=== PATIENT | female | born 1945 | race Caucasian/White ===

== ENCOUNTER 2017-12-18 14:33 | Emergency (ER) | payer MEDICARE, MEDICAID ==
[2017-12-18 14:58] VITALS: BMI 30.2
[2017-12-18] MEDS ORDERED: TDAP Vaccine 0.5 mL Syr IM ONE (15:31)
--- NOTE | 2017-12-18 15:35 | ED PDOC ---
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 Patient stated she tripped and fell down while walking on sidewalk. She stated she has a lip laceration, and front upper toothache. Patient denies PAULSON, n/v, diplopia, jaw pain, dizziness, or abnormal gait. Denies hand pain, wrist pain, cp, sob, neck pain, shoulder pain, or abnormal gait. Time/Duration: Prior to Arrival Context: Home Past Medical History - Provider Review Nursing Documentation Reviewed: Yes - Infectious Disease Hx of Infectious Diseases: None - Tetanus Immunization Tetanus Immunization: Unknown - Cardiac Hx Hypertension: Yes - Musculoskeletal/Rheumatological Hx Arthritis: Yes - Gastrointestinal Hx Gastroesophageal Reflux: Yes - Psychiatric Hx Depression: No Hx Emotional Abuse: No Hx Physical Abuse: No Hx Substance Use: No - Surgical History Hx Cholecystectomy: Yes - Anesthesia Hx Anesthesia Reactions: No - Suicidal Assessment Feels Threatened In Home Enviroment: No Family/Social History - Physician Review Nursing Documentation Reviewed: Yes Family/Social History: Other (noncontributory) Smoking Status: Unknown If Ever Smoked Hx Alcohol Use: No Hx Substance Use: No Hx Substance Use Treatment: No Allergies/Home Meds Allergies/Adverse Reactions: Allergies codeine Adverse Reaction (Verified 01/18/16 16:04) NAUSEA Home Medications: Home Meds Medication Instructions Recorded Confirmed Esomeprazole Magnesium [Nexium] 40 mg PO DAILY 01/06/14 01/18/16 Fish Oil [[place]-3] 1 cap PO DAILY 01/06/14 01/18/16 Metoprolol Succinate [Metoprolol 12.5 mg PO BID 01/06/14 01/18/16 Succinate] Review of Systems - Review of Systems Constitutional: Normal. absent: Fatigue, Weight Change, Fevers Eyes: Normal ENT: Normal, Other (mouth injury, tooth injury) Respiratory: Normal. absent: SOB, Cough Cardiovascular: Normal. absent: Chest Pain, Palpitations Gastrointestinal: Normal. absent: Abdominal Pain, Nausea, Vomiting Genitourinary Female: Normal. absent: Dysuria, Frequency, Hematuria Musculoskeletal: absent: Back Pain, Neck Pain Skin: Other ((+) abrasion) Neurological: Normal. absent: Headache, Dizziness, Focal Weakness, Gait Changes , Facial Droop, Disequilibrium, Seizure Endocrine: Normal Hemo/Lymphatic: Normal Psychiatric: Normal Physical Exam Vital Signs Temp Pulse Resp BP Pulse Ox 12/18/17 18:56 66 16 135/87 99 12/18/17 16:42 98.7 F 57 L 18 165/80 H 100 12/18/17 16:15 71 18 126/73 98 12/18/17 14:58 98.4 F 76 16 97 Temperature: Afebrile Blood Pressure: Normal Pulse: Regular Respiratory Rate: Normal Appearance: Positive for: Well-Appearing, Non-Toxic, Comfortable Pain Distress: None Mental Status: Positive for: Alert and Oriented X 3 - Systems Exam Head: Present: Atraumatic, Normocephalic, Other (no raccoon sign. No sidhu sign) Pupils: Present: PERRL, Other (nohyphema) Extroacular Muscles: Present: EOMI Conjunctiva: Present: Normal Ears: Present: Normal, Other (no hemotympanum) Mouth: Present: Moist Mucous Membranes, Normal Lips ((+) 4 mm superficial, inner lip irregular laceration. no actively bleeding), Normal Tounge, Other ((+ ) mild tenderness on tooth #9. Tooth appears in good position, with a small chip Fx. on the medial tip of this tooth. Tooth moves very slightly if pushed.) . No: Drooling, Trismus Pharnyx: Present: Normal. No: ERYTHEMA, EXUDATE, TONSILS ENLARGED Nose (External): Present: Atraumatic Nose (Internal): Present: Normal Inspection. No: Septal Hematoma, Epistaxis Neck: Present: Normal Range of Motion Respiratory/Chest: Present: Clear to Auscultation, Good Air Exchange. No: Respiratory Distress, Accessory Muscle Use Cardiovascular: Present: Regular Rate and Rhythm, Normal S1, S2. No: Murmurs Abdomen: Present: Normal Bowel Sounds. No: Tenderness, Distention, Peritoneal Signs Back: Present: Normal Inspection Upper Extremity: Present: Normal Inspection. No: Cyanosis, Edema Lower Extremity: Present: Normal Inspection. No: Edema Neurological: Present: GCS=15, CN II-XII Intact, Speech Normal Skin: Present: Warm, Dry, Normal Color. No: Rashes Psychiatric: Present: Alert, Oriented x 3, Normal Insight, Normal Concentration Medical Decision Making ED Course and Treatment: 12/18/17 14:25 Patient came to ED for mount injury from a mechanical fall. patient denied loc , syncope, dizziness, weakness, or parethesias. She also denies sob, fever, cp , abdominal pain or urinary symptoms. CT Brain and maxillo facial were ordered. Suture repair will be performed. 12/18/17 17:50 Re-evaluation. Patient feels better. Discussed results and plan with patient who expresses understanding. All questions answered and there is agreement with the plan to discharge home with instructions. Patient stable for discharge. Return if symptoms persist or worsen Patient was recommended to see her dentist in 1-2 days. She was also recommended to see ENT Dr. Gunter for revaluation of lip laceration. She understood to return to emergency if wound becomes infected or worsening of pain. Re-evaluation Time: 17:54 Reassessment Condition: Re-examined, Improved - RAD Interpretation Narrative RAD Interpretations (Text): 12/18/17 17:44 PROCEDURE: CT scan maxillofacial skeleton dated 12/18/2017 HISTORY: Status post fall with injury COMPARISON: Correlation made with concurrent CT scan brain TECHNIQUE: Contiguous helical/transaxial CT images of the maxillofacial bones were obtained. Coronal and sagittal reformats were generated. Radiation dose: Are Total exam DLP = 793.07 mGy-cm. This CT exam was performed using one or more of the following dose reduction techniques: Automated exposure control, adjustment of the mA and/or kV according to patient size, and/or use of iterative reconstruction technique. FINDINGS: The current study reveals what appears represent mild soft tissue swelling overlying the mandible particular at the level of symphysis and to a lesser degree bilaterally. Additionally, there appears to be at absent right and left central mandibular incisors however evaluation somewhat limited due to significant streak and beam hardening artifact from dental amalgam and caps so evaluation is quite limited. Small radiopaque densities within the subcutaneous tissue lower lip midline could represent bony dental fragments however clinical correlation recommended. The mandible otherwise appears intact. The globes intact and lenses appropriately located. No retrobulbar hemorrhages or collections. Optic nerves and extraocular musculature unremarkable. The visualized paranasal sinuses are relatively well-developed and currently well-aerated. No fluid levels seen suggest acute hemorrhage or sinusitis Nasal bones intact. Nasal septum midline. IMPRESSION: The central mandibular incisors are absent which could be due to recent trauma given the overlying soft tissue swelling and tiny radiopaque densities within the subcutaneous tissues lower lip that could represent either bony fragments or possibly foreign bodies such as glass or gravel. Clinical correlation recommended. Note that evaluation is limited the due to dental amalgam and metallic CT See above discussion for additional details. 12/18/17 17:45 PROCEDURE: CT scan brain dated 12/18/2017. HISTORY: Status post fall with headache. COMPARISON: Correlation made with concurrent CT scan maxillofacial skeleton. . Comparison also made with prior CT scan of brain dated 01/07/2014 TECHNIQUE: Axial computed tomography images were obtained through the head/brain without intravenous contrast. Radiation dose: Total exam DLP = mGy-cm. This CT exam was performed using one or more of the following dose reduction techniques: Automated exposure control, adjustment of the mA and/or kV according to patient size, and/or use of iterative reconstruction technique. FINDINGS: HEMORRHAGE: No acute parenchymal, subarachnoid or extra-axial hemorrhage. . BRAIN: Moderate diffuse/confluent chronic white matter ischemic changes seen extending peripherally into the deep and subcortical white matter both cerebral hemispheres. There appear to be a few tiny lacunar type infarcts scattered about both basal nuclei. Moderate central volume loss evidenced by disproportionate enlargement of the ventricles as compared sulci. Mild vascular calcifications carotid siphons. VENTRICLES: No obstructive hydrocephalus. CALVARIUM: There are no acute calvarial fractures. . PARANASAL SINUSES: The visualized paranasal sinuses are well-developed and currently well-aerated. No fluid levels seen to suggest acute hemorrhage or sinusitis. MASTOID AIR CELLS: Unremarkable as visualized. No inflammatory changes. OTHER FINDINGS: None. IMPRESSION: No acute intracranial hemorrhage. Moderate chronic white matter ischemic changes with a few scattered chronic bilateral basal nuclei lacunar type infarcts. Moderate central volume loss. Radiology Orders: 12/18/17 15:29 HEAD W/O CONTRAST [CT] Stat 12/18/17 15:30 MAXILLOFACIAL W/O CONTRAST [CT] Stat - Medication Orders Current Medication Orders: Discontinued Medications Acetaminophen (Tylenol 325mg Tab) 650 mg PO STAT STA Stop: 12/18/17 15:31 Last Admin: 12/18/17 16:00 Dose: 650 mg MAR Pain/Vitals Document 12/18/17 16:00 HI (Rec: 12/18/17 16:00 HI [id number]) Pain Reassessment Is This A Pain ReAssessment? No Location Pain Location Body Site Face Amoxicillin (Amoxil 500 Mg Cap) 500 mg PO STAT STA PRN Reason: Protocol Stop: 12/18/17 17:51 Last Admin: 12/18/17 18:46 Dose: 500 mg Famotidine (Pepcid) 40 mg PO STAT STA Stop: 12/18/17 15:32 Last Admin: 12/18/17 16:00 Dose: 40 mg Ibuprofen (Motrin Tab) 400 mg PO STAT STA Stop: 12/18/17 17:49 Last Admin: 12/18/17 18:45 Dose: 400 mg MAR Pain/Vitals Document 12/18/17 18:45 HI (Rec: 12/18/17 18:46 HI [id number]) Pain Reassessment Is This A Pain ReAssessment? Yes Tetanus/Reduced Diphtheria/Acell Pertussis (Boostrix Vaccine Inj) 0.5 ml IM .ONCE ONE Stop: 12/18/17 15:32 Last Admin: 12/18/17 17:00 Dose: 0.5 ml Immunization Registry Document 12/18/17 17:00 HI (Rec: 12/18/17 17:00 HI [id number]) Immunization Registry Consent Date 12/18/17 - Procedure PROCEDURE NOTE (Text): 12/18/17 17:57 PROCEDURE: LACERATION REPAIR Performed by the emergency provider Location: inferior lip Length: 2.7 cm, inner lip and external side of lip Description: clean wound edges, irregular shape laceration, no foreign bodies Distal CMS: Normal. No deficits. Neurovascularly intact. Anesthesia: Lidocaine 1% without Epi Preparation: The wound was cleaned with NS and [place]. The area was prepped and draped in the usual sterile fashion. Exploration: The wound was explored and no foreign bodies were found. Procedure: The wound was closed with Vicryl, 5-0, interrupted. There was good approximation. In total, 3 sutures were used. Post-Procedure: Good closure and hemostasis. The patient tolerated the procedure well and there were no complications. CSM remains intact. Post procedure dressing applied. Disposition/Present on Arrival - Present on Arrival Any Indicators Present on Arrival: No History of DVT/PE: No History of Uncontrolled Diabetes: No Urinary Catheter: No History of Decub. Ulcer: No History Surgical Site Infection Following: None - Disposition Have Diagnosis and Disposition been Completed?: Yes Diagnosis: Closed fracture of incisor teeth, Laceration with foreign body of lip, initial encounter Disposition: HOME/ ROUTINE Disposition Time: 17:47 Patient Plan: Discharge Condition: IMPROVED Discharge Instructions (ExitCare): Acute Dental Trauma (ED), Facial Laceration (ED) Additional Instructions: Call private dentist in 1-2 days for revaluation of your tooth injury and pain. Also call ENT doctor Jani, or other ENT doctor you have used in the past. Take medication as instructed. Return to emergency if symptoms worsen. Prescriptions: Amoxicillin [Amoxil 500 mg Cap] 500 mg PO TID #21 cap Famotidine [Pepcid] 40 mg PO DAILY #10 tablet Ibuprofen [Motrin] 400 mg PO Q8H PRN #12 tab PRN Reason: Pain, Severe (8-10) Referrals: Marjorie La MD [Primary Care Provider] - Follow up with primary Wai Gunter DO [Staff Provider] - Follow up with primary Forms: Deed (British)
--- NOTE | 2017-12-18 16:38 | CT ---
PROCEDURE: CT scan brain dated 12/18/2017. HISTORY: Status post fall with headache. COMPARISON: Correlation made with concurrent CT scan maxillofacial skeleton. . Comparison also made with prior CT scan of brain dated 01/07/2014 TECHNIQUE: Axial computed tomography images were obtained through the head/brain without intravenous contrast. Radiation dose: Total exam DLP = mGy-cm. This CT exam was performed using one or more of the following dose reduction techniques: Automated exposure control, adjustment of the mA and/or kV according to patient size, and/or use of iterative reconstruction technique. FINDINGS: HEMORRHAGE: No acute parenchymal, subarachnoid or extra-axial hemorrhage. . BRAIN: Moderate diffuse/confluent chronic white matter ischemic changes seen extending peripherally into the deep and subcortical white matter both cerebral hemispheres. There appear to be a few tiny lacunar type infarcts scattered about both basal nuclei. Moderate central volume loss evidenced by disproportionate enlargement of the ventricles as compared sulci. Mild vascular calcifications carotid siphons. VENTRICLES: No obstructive hydrocephalus. CALVARIUM: There are no acute calvarial fractures. . PARANASAL SINUSES: The visualized paranasal sinuses are well-developed and currently well-aerated. No fluid levels seen to suggest acute hemorrhage or sinusitis. MASTOID AIR CELLS: Unremarkable as visualized. No inflammatory changes. OTHER FINDINGS: None. IMPRESSION: No acute intracranial hemorrhage. Moderate chronic white matter ischemic changes with a few scattered chronic bilateral basal nuclei lacunar type infarcts. Moderate central volume loss.
[2017-12-18 16:43] VITALS: TEMP 98.7
--- NOTE | 2017-12-18 17:08 | CT ---
PROCEDURE: CT scan maxillofacial skeleton dated 12/18/2017 HISTORY: Status post fall with injury COMPARISON: Correlation made with concurrent CT scan brain TECHNIQUE: Contiguous helical/transaxial CT images of the maxillofacial bones were obtained. Coronal and sagittal reformats were generated. Radiation dose: Are Total exam DLP = 793.07 mGy-cm. This CT exam was performed using one or more of the following dose reduction techniques: Automated exposure control, adjustment of the mA and/or kV according to patient size, and/or use of iterative reconstruction technique. FINDINGS: The current study reveals what appears represent mild soft tissue swelling overlying the mandible particular at the level of symphysis and to a lesser degree bilaterally. Additionally, there appears to be at absent right and left central mandibular incisors however evaluation somewhat limited due to significant streak and beam hardening artifact from dental amalgam and caps so evaluation is quite limited. Small radiopaque densities within the subcutaneous tissue lower lip midline could represent bony dental fragments however clinical correlation recommended. The mandible otherwise appears intact. The globes intact and lenses appropriately located. No retrobulbar hemorrhages or collections. Optic nerves and extraocular musculature unremarkable. The visualized paranasal sinuses are relatively well-developed and currently well-aerated. No fluid levels seen suggest acute hemorrhage or sinusitis Nasal bones intact. Nasal septum midline. IMPRESSION: The central mandibular incisors are absent which could be due to recent trauma given the overlying soft tissue swelling and tiny radiopaque densities within the subcutaneous tissues lower lip that could represent either bony fragments or possibly foreign bodies such as glass or gravel. Clinical correlation recommended. Note that evaluation is limited the due to dental amalgam and metallic CT See above discussion for additional details.
[2017-12-18 18:58] VITALS: BP 135/87; PULSE 66; RESP 16; O2SAT 99
== END 2017-12-18 18:56 | disposition home or self-care (01) ==
LOC: ED 14:33
DX: S01.521A Laceration with foreign body of lip, initial encounter (principal); S02.5XXA Fracture of tooth (traumatic), initial encounter for closed fracture; W01.0XXA Fall on same level from slipping, tripping and stumbling without subsequent striking against object, initial encounter; Y93.01 Activity, walking, marching and hiking; Y92.480 Sidewalk as the place of occurrence of the external cause; Z23 Encounter for immunization; I10 Essential (primary) hypertension; M19.90 Unspecified osteoarthritis, unspecified site

== ENCOUNTER 2018-03-31 08:07 | Emergency (ER) | payer MEDICARE, MEDICAID ==
[2018-03-31 08:09] VITALS: BMI 28.3
[2018-03-31 08:24] VITALS: RESP 18; TEMP 98.4
[2018-03-31] MEDS ORDERED: Sodium Chloride 0.9% 1,000 ML IV STA (08:28)
[2018-03-31] MEDS ORDERED: Alum-Mag Hydrox-Simethicone Susp (30 mL) PO STA (08:29)
[2018-03-31] MEDS ORDERED: Famotidine 20mg/50ml Premix IVPB STA (08:36)
[2018-03-31 08:53] LABS: BASO # 0.02 K/mm3 (0.0-2.0); BASO % 0.3 % (0.0-3.0); EOS # 0.1 (0.0-0.7); EOS % 0.8 % (1.5-5.0); GRAN # 3.17 (1.4-6.5); GRAN % 49.9 % (50.0-68.0); HEMOGLOBIN 13.9 g/dL (12.0-16.0); LYMPH # 2.6 (1.2-3.4); LYMPH % 41.4 % (22.0-35.0); MEAN CELL VOLUME 82.4 fl (80.0-105.0); MEAN CORPUSCULAR HEMOGLOBIN 27.5 pg (25.0-35.0); MEAN CORPUSCULAR HGB CONC 33.4 g/dl (31.0-37.0); MEAN PLATELET VOLUME 9.6 fl (7.0-11.0); MONO # 0.5 (0.1-0.6); MONO % 7.6 % (1.0-6.0); RBC 5.05 10^6/uL (3.5-6.1); WHITE BLOOD COUNT 6.4 10^3/ul (4.5-11.0)
[2018-03-31 09:01] LABS: ALB/GLOB RATIO 1.4 (1.1-1.8); ALBUMIN 4.2 g/dL (3.0-4.8); ALT/SGPT 26 U/L (7-56); AST/SGOT 32 U/L (14-36); BLOOD UREA NITROGEN 9 mg/dL (7-21); CALCIUM 9.5 mg/dL (8.4-10.5); GFR AFRICAN-AMERICAN > 60; GFR NON-AFRICAN AMERICAN > 60; LIPASE 79 U/L (23-300)
[2018-03-31] MEDS ORDERED: Iohexol 350 MG/100 ML VIAL ONE (09:05)
[2018-03-31 09:15] LABS: PH,URINE 6.5 (4.7-8.0); URINE BILIRUBIN NEGATIVE (NEGATIVE); URINE BLOOD NEGATIVE (NEGATIVE); URINE GLUCOSE (UA) NEGATIVE (NEGATIVE); URINE LEUKOCYTE ESTERASE NEGATIVE Leu/uL (NEGATIVE); URINE PROTEIN NEGATIVE mg/dL (<30 mg/dL); URINE UROBILINOGEN 0.2 E.U./dL (<1 E.U./dL)
[2018-03-31 09:29] LABS: URINE APPEARANCE CLEAR (CLEAR); URINE COLOR YELLOW (YELLOW)
--- NOTE | 2018-03-31 10:09 | ED PDOC ---
Arrival/HPI <Joselyn Mcgregor - Last Filed: 03/31/18 11:00> - General Historian: Patient - History of Present Illness Time/Duration: < week Symptom Onset: Sudden Context: Home <Joe Arroyo DO - Last Filed: 03/31/18 18:15> - General Chief Complaint: Abdominal Pain Time Seen by Provider: 03/31/18 08:24 - History of Present Illness Narrative History of Present Illness (Text): 03/31/18 10:08 Patient is a 73 year old female with a history of HTN, arhtritis, and GERD, who presents to the ED with LUQ abdominal pain. Patient says this started 2 days ago. She says the pain radiates up to her chest substernally and has pain in her throat as well. She denies any bad tastes in her mouth. She says this is associated with SOB on exertion, palpitations, and right sided headache. She denies fever, chills, cough, vomiting, diarrhea, constipation, dysuria, and lower extremity pain/swelling. (Joselyn Mcgregor) Past Medical History - Infectious Disease Hx of Infectious Diseases: None - Tetanus Immunization Tetanus Immunization: Unknown - Cardiac Hx Hypertension: Yes - Musculoskeletal/Rheumatological Hx Arthritis: Yes - Gastrointestinal Hx Gastroesophageal Reflux: Yes - Psychiatric Hx Depression: No Hx Emotional Abuse: No Hx Physical Abuse: No Hx Substance Use: No - Surgical History Hx Cholecystectomy: Yes - Anesthesia Hx Anesthesia Reactions: No - Suicidal Assessment Feels Threatened In Home Enviroment: No <Joselyn Mcgregor - Last Filed: 03/31/18 11:00> - Provider Review Nursing Documentation Reviewed: Yes <Joe Arroyo DO - Last Filed: 03/31/18 18:15> Family/Social History Family/Social History: No Known Family HX Smoking Status: Unknown If Ever Smoked Hx Alcohol Use: No Hx Substance Use: No Hx Substance Use Treatment: No <Joselyn Mcgregor - Last Filed: 03/31/18 11:00> - Physician Review Nursing Documentation Reviewed: Yes <Joe Arroyo DO - Last Filed: 03/31/18 18:15> Allergies/Home Meds <Joselyn Mcgregor - Last Filed: 03/31/18 11:00> <Joe Arroyo DO - Last Filed: 03/31/18 18:15> Allergies/Adverse Reactions: Allergies codeine Adverse Reaction (Verified 03/31/18 08:09) NAUSEA Home Medications: Home Meds Medication Instructions Recorded Confirmed Esomeprazole Magnesium [Nexium] 40 mg PO DAILY 01/06/14 01/18/16 Fish Oil [[place]-3] 1 cap PO DAILY 01/06/14 01/18/16 Metoprolol Succinate [Metoprolol 12.5 mg PO BID 01/06/14 01/18/16 Succinate] Review of Systems - Review of Systems Constitutional: Normal Eyes: Eye Pain (right eye, assiociated with headache/migraine) ENT: Sore Throat Respiratory: SOB. absent: Cough, Wheezing Cardiovascular: Chest Pain, Palpitations. absent: Edema, Calf Pain Gastrointestinal: Abdominal Pain Genitourinary Female: Normal. absent: Dysuria, Frequency, Hematuria Musculoskeletal: Normal Skin: Normal. absent: Rash Neurological: Headache Endocrine: Normal Hemo/Lymphatic: Normal Psychiatric: Normal <Joselyn Mcgregor - Last Filed: 03/31/18 11:00> Physical Exam - Systems Exam Head: Present: Atraumatic, Normocephalic Pupils: Present: PERRL Extroacular Muscles: Present: EOMI Conjunctiva: Present: Normal Mouth: Present: Moist Mucous Membranes Pharnyx: Present: Normal. No: ERYTHEMA, EXUDATE, TONSILS ENLARGED Nose (Internal): Present: Normal Inspection Respiratory/Chest: Present: Clear to Auscultation, Good Air Exchange. No: Respiratory Distress, Accessory Muscle Use Cardiovascular: Present: Regular Rate and Rhythm, Normal S1, S2. No: Murmurs Abdomen: Present: Normal Bowel Sounds. No: Tenderness, Distention, Peritoneal Signs Upper Extremity: Present: Normal Inspection, Norm 2-Pt Discrimination. No: Cyanosis, Edema Lower Extremity: No: Edema Neurological: Present: GCS=15, Speech Normal Skin: Present: Warm, Dry, Normal Color. No: Rashes Psychiatric: Present: Alert, Oriented x 3, Normal Insight, Normal Concentration <Joselyn Mcgregor - Last Filed: 03/31/18 11:00> Vital Signs Reviewed: Yes Temperature: Afebrile Blood Pressure: Normal Pulse: Regular Respiratory Rate: Normal Appearance: Positive for: Well-Appearing, Non-Toxic, Comfortable Pain Distress: None Mental Status: Positive for: Alert and Oriented X 3 <Joe Arroyo DO - Last Filed: 03/31/18 18:15> Vital Signs Temp Pulse Resp BP Pulse Ox 03/31/18 10:52 60 18 130/74 100 03/31/18 08:20 98.4 F 61 18 145/65 100 Medical Decision Making <Joselyn Mcgregor - Last Filed: 03/31/18 11:00> - Lab Interpretations I have reviewed the lab results: Yes - EKG Interpretation Interpreted by ED Physician: Yes Type: 12 lead EKG <Joe Arroyo DO - Last Filed: 03/31/18 18:15> ED Course and Treatment: 03/31/18 Plan: -- Maalox, Pepcid, Zofran, Sodium Chloride -- Labs -- Reassess and disposition Progress Notes: In agreement with resident note, which includes further HPI details. Patient was seen and evaluated with resident, came up with plan and treatment together. (Joe Arroyo DO) - Lab Interpretations Lab Results: 03/31/18 08:45 03/31/18 08:45 Lab Results 03/31/18 09:20: Lactate Dehydrogenase 556, Total Creatine Kinase 92, Troponin I < 0.01 03/31/18 08:45: Sodium 146, Potassium 4.0, Chloride 107, Carbon Dioxide 27, Anion Gap 16, BUN 9, Creatinine 0.8, Est GFR ( Amer) > 60, Est GFR (Non- Af Amer) > 60, Random Glucose 95, Calcium 9.5, Magnesium 2.1, Total Bilirubin 0.6, AST 32, ALT 26, Alkaline Phosphatase 68, Total Protein 7.2, Albumin 4.2, Globulin 3.1, Albumin/Globulin Ratio 1.4, Lipase 79 03/31/18 08:45: WBC 6.4, RBC 5.05, Hgb 13.9, Hct 41.6, MCV 82.4, MCH 27.5, MCHC 33.4, RDW 15.0 H, Plt Count 202, MPV 9.6, Gran % 49.9 L, Lymph % (Auto) 41.4 H, [place] % (Auto) 7.6 H, Eos % (Auto) 0.8 L, Baso % (Auto) 0.3, Gran # 3.17, Lymph # (Auto) 2.6, [place] # (Auto) 0.5, Eos # (Auto) 0.1, Baso # (Auto) 0.02 03/31/18 08:29: Urine Color Yellow, Urine Appearance Clear, Urine pH 6.5, Ur Specific [place] 1.010, Urine Protein Negative, Urine Glucose (UA) Negative, Urine Ketones Negative, Urine Blood Negative, Urine Nitrate Negative, Urine Bilirubin Negative, Urine Urobilinogen 0.2, Ur Leukocyte Esterase Negative - RAD Interpretation Radiology Orders: 03/31/18 08:29 ABD & PELVIS IV CONTRAST ONLY [CT] Stat - Medication Orders Current Medication Orders: Discontinued Medications Al Hydrox/Mg Hydrox/Simethicone (Maalox Plus 30 Ml) 30 ml PO STAT STA Stop: 03/31/18 08:30 Last Admin: 03/31/18 09:04 Dose: 30 ml Famotidine (Pepcid 20mg/50ml Premix) 20 mg IVPB STAT STA Stop: 03/31/18 08:37 Last Admin: 03/31/18 09:00 Dose: 20 mg eMAR Start Stop Document 03/31/18 09:00 [email or web address] (Rec: 03/31/18 09:04 [email or web address] [id number]) Intravenous Solution Start Date 03/31/18 Start Time 09:04 Sodium Chloride (Sodium Chloride 0.9%) 1,000 mls @ 100 mls/hr IV .Q10H STA Stop: 03/31/18 18:27 Last Admin: 03/31/18 09:00 Dose: 100 mls/hr eMAR Start Stop Document 03/31/18 09:00 [email or web address] (Rec: 03/31/18 09:00 [email or web address] [id number]) Intravenous Solution Start Date 03/31/18 Start Time 09:00 End Date 03/31/18 Ondansetron HCl (Zofran Inj) 4 mg IVP STAT STA Stop: 03/31/18 08:29 Last Admin: 03/31/18 09:04 Dose: 4 mg IVP Administration Document 03/31/18 09:04 [email or web address] (Rec: 03/31/18 09:04 [email or web address] [id number]) Charges for Administration # of IVP Administrations 1 <Joselyn Mcgregor - Last Filed: 03/31/18 11:00> - PA / RESPITE WORKER / Resident Statement CARRILLO has reviewed & agrees with the documentation as recorded. CARRILLO has examined the patient and agrees with the treatment plan. - Scribe Statement The provider has reviewed the documentation as recorded by the Scribe <Joe Arroyo DO - Last Filed: 03/31/18 18:15> - Scribe Statement Arielle Gonzalez Provider Scribe Attestation: All medical record entries made by the Scribe were at my direction and personally dictated by me. I have reviewed the chart and agree that the record accurately reflects my personal performance of the history, physical exam, medical decision making, and the department course for this patient. I have also personally directed, reviewed, and agree with the discharge instructions and disposition. (Joe Arroyo DO) Disposition/Present on Arrival - Present on Arrival Any Indicators Present on Arrival: No History of DVT/PE: No History of Uncontrolled Diabetes: No Urinary Catheter: No History of Decub. Ulcer: No History Surgical Site Infection Following: None - Disposition Have Diagnosis and Disposition been Completed?: Yes Disposition Time: 11:01 <Joselyn Mcgregor - Last Filed: 03/31/18 11:00> - Disposition Disposition Time: 10:30 <Joe Arroyo DO - Last Filed: 03/31/18 18:15> - Disposition Diagnosis: Vomiting, Abdominal pain Disposition: HOME/ ROUTINE Condition: IMPROVED Discharge Instructions (ExitCare): Nausea and Vomiting, Adult (DC), Viral Gastroenteritis, Adult (DC) Additional Instructions: Thank you for letting us take care of you today. The emergency medical care you received today was directed at your acute symptoms. If you were prescribed any medication, please fill it and take as directed. It may take several days for your symptoms to resolve. Return to the Emergency Department if your symptoms worsen, do not improve, or if you have any other problems. Please contact your doctor or call one of the physicians/clinics you have been referred to that are listed on the Patient Visit Information form that is included in your discharge packet. Bring any paperwork you were given at discharge with you along with any medications you are taking to your follow up visit. Our treatment cannot replace ongoing medical care by a primary care provider (PCP) outside of the emergency department. Thank you for allowing the [facility] team to be part of your care today. Follow up with your primary care doctor in 2-3 days for re-evaluation and further management. Prescriptions: Ondansetron ODT [Zofran ODT] 4 mg PO Q8 PRN #15 odt PRN Reason: Nausea/Vomiting Referrals: [facility], [Non-Staff] - Follow up with primary Forms: [email or web address] ([place])
--- NOTE | 2018-03-31 10:13 | CT ---
PROCEDURE: CT Abdomen and Pelvis with contrast HISTORY: upper abdominal pain COMPARISON: None. TECHNIQUE: Contrast dose: Radiation dose: Total exam DLP = mGy-cm. This CT exam was performed using one or more of the following dose reduction techniques: Automated exposure control, adjustment of the mA and/or kV according to patient size, and/or use of iterative reconstruction technique. FINDINGS: LOWER THORAX: Subcentimeter juxtapleural nodules at the right lung base which correlation with chest CT scan is recommended.. LIVER: Unremarkable. No gross lesion or ductal dilatation. GALLBLADDER AND BILE DUCTS: Status post cholecystectomy.. PANCREAS: Unremarkable. No gross lesion or ductal dilatation. SPLEEN: Unremarkable. ADRENALS: Unremarkable. No mass. KIDNEYS AND URETERS: Unremarkable. No hydronephrosis. No solid mass. VASCULATURE: Unremarkable. No aortic aneurysm. BOWEL: Unremarkable. No obstruction. No gross mural thickening. APPENDIX: Normal appendix. PERITONEUM: Unremarkable. No free fluid. No free air. LYMPH NODES: Unremarkable. No enlarged lymph nodes. BLADDER: Unremarkable. REPRODUCTIVE: Unremarkable. BONES: No acute fracture. OTHER FINDINGS: None. IMPRESSION: Juxta pleural nodules at the right lung base possibly post inflammatory. Recommend a follow-up CT scan of the chest. Status post cholecystectomy..
[2018-03-31 10:20] LABS: TROPONIN I < 0.01 ng/mL
[2018-03-31 10:52] VITALS: BP 130/74; PULSE 60
[2018-03-31 10:53] VITALS: O2SAT 100
--- NOTE | 2018-03-31 11:48 | CARD ---
APPROVED REPORT EKG Measurement Heart [id number] [place] [id number] [id number] <Conclusion> Normal sinus rhythm with sinus arrhythmia Right bundle branch block Left anterior fascicular block Bifascicular block STTW changes c/w ischemia
== END 2018-03-31 11:26 | disposition home or self-care (01) ==
LOC: ED 08:07
DX: R11.10 Vomiting, unspecified (principal); R10.9 Unspecified abdominal pain; I10 Essential (primary) hypertension; K21.9 Gastro-esophageal reflux disease without esophagitis; Z90.49 Acquired absence of other specified parts of digestive tract
CPT/HCPCS: 74177; 80053; 81003; 82550; 83615; 83690; 83735; 84484; 85025; 87086; 93005; 96374; 99283; J2405; J7040; Q9967

== ENCOUNTER 2018-10-07 16:01 | Emergency (ER) | payer MEDICARE, MEDICAID ==
[2018-10-07 16:02] VITALS: BMI 28.3
[2018-10-07] MEDS ORDERED: Sodium Chloride 0.9% 500 ML IV ONE (16:23)
--- NOTE | 2018-10-07 16:26 | ED PDOC ---
Arrival/HPI - General Chief Complaint: Back Pain Time Seen by Provider: 10/07/18 16:08 Historian: Patient, Spouse - History of Present Illness Time/Duration: Other (2 days) Symptom Onset: Gradual Symptom Course: Worsening Quality: Aching Severity Level: Moderate Activities at Onset: Rest Associated Symptoms (Text): 10/07/18 16:24 Patient complains of a 2 day history of left flank pain with radiation into her left groin. No nausea vomiting diarrhea constipation or GI bleed. No dysuria frequency urgency or hematuria. No lower extremity pain. No numbness tingling or paresthesias. No weakness. No rash. No trauma. She has never experienced this previously. Past Medical History - Infectious Disease Hx of Infectious Diseases: None - Tetanus Immunization Tetanus Immunization: Unknown - Cardiac Hx Hypertension: Yes - Musculoskeletal/Rheumatological Hx Arthritis: Yes - Gastrointestinal Hx Gastroesophageal Reflux: Yes - Psychiatric Hx Depression: No Hx Emotional Abuse: No Hx Physical Abuse: No Hx Substance Use: No - Surgical History Hx Cholecystectomy: Yes - Anesthesia Hx Anesthesia: Yes Hx Anesthesia Reactions: No Hx Malignant Hyperthermia: No - Suicidal Assessment Feels Threatened In Home Enviroment: No Family/Social History - Physician Review Nursing Documentation Reviewed: Yes Family/Social History: Unknown Family HX Smoking Status: Never Smoked Hx Alcohol Use: No Hx Substance Use: No Hx Substance Use Treatment: No Allergies/Home Meds Allergies/Adverse Reactions: Allergies codeine Adverse Reaction (Verified 03/31/18 08:09) NAUSEA Home Medications: Home Meds Medication Instructions Recorded Confirmed Esomeprazole Magnesium [Nexium] 40 mg PO DAILY 01/06/14 01/18/16 Fish Oil [[place]-3] 1 cap PO DAILY 01/06/14 01/18/16 Metoprolol Succinate 12.5 mg PO BID 01/06/14 01/18/16 Review of Systems - Physician Review All systems were reviewed & negative as marked: Yes - Review of Systems Constitutional: absent: Fatigue, Fevers Respiratory: absent: SOB, Cough, Wheezing Cardiovascular: absent: Chest Pain, Palpitations, Syncope Gastrointestinal: Abdominal Pain. absent: Constipation, Diarrhea, Nausea, Vom iting, Anorexia Genitourinary Female: absent: Dysuria, Frequency, Hematuria Neurological: absent: Headache, Dizziness, Focal Weakness Physical Exam Temperature: Afebrile Blood Pressure: Normal Pulse: Regular Respiratory Rate: Normal Appearance: Positive for: Well-Appearing, Non-Toxic, Uncomfortable Pain Distress: Moderate Mental Status: Positive for: Alert and Oriented X 3 - Systems Exam Head: Present: Atraumatic, Normocephalic Pupils: Present: PERRL Extroacular Muscles: Present: EOMI Conjunctiva: Present: Normal Mouth: Present: Moist Mucous Membranes Pharnyx: No: ERYTHEMA, EXUDATE, TONSILS ENLARGED Respiratory/Chest: Present: Clear to Auscultation, Good Air Exchange. No: Respiratory Distress, Accessory Muscle Use Cardiovascular: Present: Regular Rate and Rhythm, Normal S1, S2. No: Murmurs Abdomen: No: Tenderness, Distention, Peritoneal Signs, Rebound, Guarding Back: Present: CVA Tenderness (left sided CVA tenderness with no rash), Paraspinal Tenderness Upper Extremity: Present: Normal Inspection. No: Cyanosis, Edema Lower Extremity: Present: Normal Inspection. No: Edema Neurological: Present: GCS=15, CN II-XII Intact, Speech Normal, Motor Func Grossly Intact Skin: Present: Warm, Dry, Normal Color. No: Rashes Psychiatric: Present: Alert, Oriented x 3, Normal Insight, Normal Concentration Medical Decision Making ED Course and Treatment: 10/07/18 16:30 EKG shows normal sinus rhythm rate approximately 75 with a right bundle branch block 10/07/18 17:32 Pain is improved post Toradol. She reports it was much worse while she was moving around for CAT scan. Much better while she is still. 10/07/18 17:45 CT of Abdomen and Pelvis reviewed, shows: FINDINGS: LOWER THORAX:4 mm pulmonary nodule lateral segment right lower lobe stable compared to the prior study. LIVER:Unremarkable. No gross lesion or ductal dilatation. GALLBLADDER AND BILE DUCTS:Status post cholecystectomy. No abnormality is seen in the gallbladder fossa. PANCREAS:Unremarkable. No gross lesion or ductal dilatation. SPLEEN:Unremarkable. ADRENALS:Unremarkable. No mass. KIDNEYS AND URETERS:Unremarkable. No hydronephrosis. No solid mass. VASCULATURE:Unremarkable. No aortic aneurysm. Atherosclerotic calcification and mural plaque present. Findings are seen throughout the aorta and iliac arteries. BOWEL:Constipation without fecal impaction or obstruction. APPENDIX:Unremarkable. Normal appendix. PERITONEUM:Unremarkable. No free fluid. No free air. LYMPH NODES:Unremarkable. No enlarged lymph nodes. BLADDER:Unremarkable. REPRODUCTIVE:Unremarkable. BONES:No acute fracture. OTHER FINDINGS:None. IMPRESSION: No acute findings related to/accounting for the clinical presentation. Additional benign and/or incidental findings described above. No significant interval change compared to the prior examination(s). This includes pulmonary nodule in the right lower lobe. - RAD Interpretation Radiology Orders: 10/07/18 16:21 ABD & PELVIS W/O PO OR IV CONT [CT] Stat CT scan of the abdomen and pelvis is read by the radiologist shows no acute findings. Reporting Analyst: Radiologist Disposition/Present on Arrival - Present on Arrival Any Indicators Present on Arrival: No History of DVT/PE: No History of Uncontrolled Diabetes: No Urinary Catheter: No History of Decub. Ulcer: No History Surgical Site Infection Following: None - Disposition Have Diagnosis and Disposition been Completed?: Yes Diagnosis: Lumbar spine strain, Low back pain Disposition: HOME/ ROUTINE Disposition Time: 18:03 Patient Plan: Discharge Condition: IMPROVED Discharge Instructions (ExitCare): Muscle Strain, Low Back Pain in Adults Prescriptions: Tramadol HCl [Ultram] 50 mg PO Q6 PRN #15 tab PRN Reason: Pain Forms: [employer] ([place])
[2018-10-07 16:45] LABS: URINE BILIRUBIN NEGATIVE (NEGATIVE); URINE BLOOD NEGATIVE (NEGATIVE); URINE GLUCOSE (UA) NEGATIVE (NEGATIVE); URINE LEUKOCYTE ESTERASE TRACE Leu/uL (NEGATIVE); URINE PROTEIN NEGATIVE mg/dL (<30 mg/dL); URINE UROBILINOGEN 0.2 E.U./dL (<1 E.U./dL)
[2018-10-07 17:03] LABS: URINE APPEARANCE CLEAR (CLEAR); URINE COLOR STRAW (YELLOW)
[2018-10-07 17:09] LABS: URINE BACTERIA TRACE (NEG)
[2018-10-07 17:18] LABS: BASO # 0.01 K/mm3 (0.0-2.0); BASO % 0.1 % (0.0-3.0); EOS % 0.1 % (1.5-5.0); GRAN # 4.07 (1.4-6.5); GRAN % 58.7 % (50.0-68.0); HEMOGLOBIN 12.5 g/dL (12.0-16.0); LYMPH # 2.5 (1.2-3.4); LYMPH % 35.8 % (22.0-35.0); MEAN CELL VOLUME 82.9 fl (80.0-105.0); MEAN CORPUSCULAR HEMOGLOBIN 27.4 pg (25.0-35.0); MONO # 0.4 (0.1-0.6); MONO % 5.3 % (1.0-6.0); RBC 4.57 10^6/uL (3.5-6.1); RED CELL DISTRIBUTION WIDTH 14.9 % (11.5-14.5)
[2018-10-07 17:26] VITALS: RESP 18; TEMP 98
[2018-10-07 17:27] LABS: INR 1.07; PARTIAL THROMBOPLASTIN TIME 31.5 Seconds (25.1-36.5); PROTHROMBIN TIME 12.2 SECONDS (9.4-12.5)
[2018-10-07 17:32] LABS: ALB/GLOB RATIO 1.4 (1.1-1.8); ALBUMIN 3.9 g/dL (3.0-4.8); ALT/SGPT 26 U/L (7-56); AMYLASE 75 U/L (35-125); AST/SGOT 27 U/L (14-36); BLOOD UREA NITROGEN 9 mg/dL (7-21); CALCIUM 9.4 mg/dL (8.4-10.5); GFR NON-AFRICAN AMERICAN > 60; LIPASE 72 U/L (23-300)
[2018-10-07 17:41] LABS: TROPONIN I < 0.01 ng/mL
--- NOTE | 2018-10-07 17:42 | CT ---
Date of service: 10/07/2018 PROCEDURE: CT Abdomen and Pelvis without intravenous contrast HISTORY: Back pain. Left stone run. COMPARISON: 03/31/2018 CT abdomen and pelvis TECHNIQUE: Unenhanced. Neither IV nor oral contrast administered Radiation dose: Total exam DLP = 584.62 mGy-cm. This CT exam was performed using one or more of the following dose reduction techniques: Automated exposure control, adjustment of the mA and/or kV according to patient size, and/or use of iterative reconstruction technique. FINDINGS: LOWER THORAX: 4 mm pulmonary nodule lateral segment right lower lobe stable compared to the prior study. LIVER: Unremarkable. No gross lesion or ductal dilatation. GALLBLADDER AND BILE DUCTS: Status post cholecystectomy. No abnormality is seen in the gallbladder fossa. PANCREAS: Unremarkable. No gross lesion or ductal dilatation. SPLEEN: Unremarkable. ADRENALS: Unremarkable. No mass. KIDNEYS AND URETERS: Unremarkable. No hydronephrosis. No solid mass. VASCULATURE: Unremarkable. No aortic aneurysm. Atherosclerotic calcification and mural plaque present. Findings are seen throughout the aorta and iliac arteries. BOWEL: Constipation without fecal impaction or obstruction. APPENDIX: Unremarkable. Normal appendix. PERITONEUM: Unremarkable. No free fluid. No free air. LYMPH NODES: Unremarkable. No enlarged lymph nodes. BLADDER: Unremarkable. REPRODUCTIVE: Unremarkable. BONES: No acute fracture. OTHER FINDINGS: None. IMPRESSION: No acute findings related to/accounting for the clinical presentation. Additional benign and/or incidental findings described above. No significant interval change compared to the prior examination(s). This includes pulmonary nodule in the right lower lobe.
[2018-10-07 18:15] VITALS: BP 148/55; PULSE 76; O2SAT 99
--- NOTE | 2018-10-07 19:10 | CARD ---
APPROVED REPORT Date of service: 10/07/2018 EKG Measurement Heart [id number] [place] [id number] <Conclusion> Normal sinus rhythm Right bundle branch block Left anterior fascicular block Bifascicular block Moderate voltage criteria for LVH, may be normal variant Abnormal ECG
== END 2018-10-07 18:30 | disposition home or self-care (01) ==
LOC: ED 16:01
DX: S39.012A Strain of muscle, fascia and tendon of lower back, initial encounter (principal); X58.XXXA Exposure to other specified factors, initial encounter; Y92.9 Unspecified place or not applicable; I10 Essential (primary) hypertension; K21.9 Gastro-esophageal reflux disease without esophagitis; Z90.49 Acquired absence of other specified parts of digestive tract
CPT/HCPCS: 74176; 80053; 81001; 82150; 82550; 83615; 83690; 84484; 85025; 85610; 85730; 87086; 93005; 96374; 99283; J1885; J7040